=== PATIENT | female | born 1965 | race Two or more races ===

== ENCOUNTER 2017-08-12 08:09 | Emergency (ER) | payer SELFPAY ==
[~2017-08-12] VITALS: Ht 167.6 cm; Wt 83.9 kg
--- NOTE | 2017-08-12 08:33 | Emergency Room Report ---
History of Present Illness General Chief Complaint: Laceration Source: Patient Present Illness HPI 52-year-old female no significant past medical history p/w laceration upper right eyelid. sustained when she was stretching this morning and then tripped and fell onto her right side. Also sustained a superficial abrasion to her right knee. Patient has been able to ambulate without any issue. no other complaints. Tdap is up-to-date Allergies: Coded Allergies: No Known Allergies (Unverified , 08/12/17) Patient History Past Medical History: see triage record Past Surgical History: none Pertinent Family History: none Reviewed Nursing Documentation: PMH: Agreed, PSxH: Agreed Nursing Documentation-PMH Past Medical History: No Stated History Review of Systems All Other Systems: negative except mentioned in HPI Physical Exam Vital Signs Date Time Temp Pulse Resp B/P (MAP) Pulse Ox O2 Delivery O2 Flow Rate FiO2 08/12/17 08:12 97.2 80 14 119/70 100 Room Air Sp02 EP Interpretation: reviewed, normal General Appearance: normal inspection, well appearing, no apparent distress, alert, GCS 15, non-toxic Head: normocephalic Eyes: bilateral eye normal inspection, bilateral eye PERRL, bilateral eye EOMI , bilateral eye other - R eyelid (right under eyebrow) with superficial laceration ~2cm minimal bleeding ENT: normal ENT inspection, normal pharynx, normal voice, moist mucus membranes Neck: normal inspection, full range of motion, supple Respiratory: normal inspection, lungs clear, normal breath sounds, no respiratory distress, no retraction, no wheezing, speaking full sentences, chest symmetrical Cardiovascular #1: normal inspection, regular rate, rhythm, no edema, normal capillary refill Cardiovascular #2: 2+ radial (R), 2+ radial (L) Gastrointestinal: normal inspection, non tender, soft, non-distended, no guarding Musculoskeletal: back normal, normal range of motion, other - superficial abrasion R knee Neurologic: normal inspection, alert, oriented x3, responsive, membership sales advisor III-XII nml as tested, motor strength/tone normal, sensory intact, normal gait, speech normal Psychiatric: normal inspection, judgement/insight normal, memory normal Skin: normal color, no rash, warm/dry, well hydrated, normal turgor Procedures Laceration/Wound Repair Laceration/Wound Repair : Consent: Verbal Wound Location: face, other - R eyelid Wound Length (cm): 2 Wound Explored: clean Irrigated w/ Saline (ccs): 300 Betadine Prep?: Yes Anesthesia: 1% Lidocaine Volume Anesthetic (ccs): 2 Wound Repaired With: sutures Suture Size/Type: 6:0, nylon Number of Sutures: 5 Layer Closure?: Yes Sterile Dressing Applied?: Yes Splint Applied?: No Sling Applied?: No Patient Tolerated: Well Complications: None Medical Decision Making Diagnostic Impression: Primary Impression: Right eyelid laceration Additional Impression: Abrasion of right knee ER Course 52-year-old female with right eyelid laceration Right knee abrasion Differential diagnosis Laceration and abrasion No acute neurological symptoms, no findings on physical exam, not consistent with intracranial bleed ER course: Laceration repaired, bacitracin sterile dressing applied. Tetanus is up-to-date Disposition: Patient will be discharged home. Strict return precautions discussed with patient such as fever, chills, increasing bleeding to site, purulent drainage, rapid swelling or redness to area. Patient verbalizes understanding. Patient sis informed of inevitable scar that will result from laceration despite repair. Pt instructed to avoid sun exposure to decrease the appearance of scar. Patient instructed to return to ED or their primary care doctor in 5 days for removal of sutures. Patient agrees with plan. Please note that this Emergency Department Report was dictated using [employer] techn[employer] technology software, occasionally this can lead to erroneous entry secondary to interpretation by the dictation equipment Last Vital Signs Date Time Temp Pulse Resp B/P (MAP) Pulse Ox O2 Delivery O2 Flow Rate FiO2 08/12/17 08:12 97.2 80 14 119/70 100 Room Air Disposition: HOME, SELF-CARE Condition: Improved Patient Instructions: Facial Laceration Additional Instructions: Please follow up with your primary care doctor or emergency room in 5 days for suture removal Please come back to the emergency room if you are having severe/worsening pain, spread of rash, purulent drainage. Paulina Wu M.D. Aug 12, 2017 08:33
[2017-08-12] MEDS ORDERED: Bacitracin Oint UD TOPIC ONE (09:00)
[2017-08-12 09:12] VITALS: BP 123/75
== END 2017-08-12 09:12 | disposition home or self-care (01) ==
LOC: EMR 08:45
DX: S01.111A Laceration without foreign body of right eyelid and periocular area, initial encounter (principal); S80.211A Abrasion, right knee, initial encounter; W01.0XXA Fall on same level from slipping, tripping and stumbling without subsequent striking against object, initial encounter; Y93.9 Activity, unspecified; Y92.9 Unspecified place or not applicable
CPT/HCPCS: 99283

== ENCOUNTER 2017-08-17 15:49 | Emergency (ER) | payer SELFPAY ==
[~2017-08-17] VITALS: Ht 167.6 cm; Wt 83.9 kg
[2017-08-17 16:10] VITALS: BP 114/79
--- NOTE | 2017-08-17 16:17 | Emergency Room Report ---
History of Present Illness General Chief Complaint: Wound Recheck/Suture Removal Source: Patient Present Illness HPI Patient is a 52-year-old female who presents today for suture removal. Today she sustained a laceration to her right eyebrow 5 days ago. She states her tetanus was up-to-date and she denies pain at this time. Denies headache, dizziness or associated symptoms. Allergies: Coded Allergies: No Known Allergies (Unverified , 08/12/17) Patient History Last Menstrual Period: na Now: No Reviewed Nursing Documentation: PMH: Agreed, PSxH: Agreed Nursing Documentation-PMH Past Medical History: No Stated History Review of Systems Skin: Reports: other - suture removal Physical Exam Vital Signs Date Time Temp Pulse Resp B/P (MAP) Pulse Ox O2 Delivery O2 Flow Rate FiO2 08/17/17 15:52 97.9 71 18 114/79 98 Room Air Sp02 EP Interpretation: reviewed, normal General Appearance: no apparent distress, alert, GCS 15, non-toxic Head: normocephalic, atraumatic Eyes: bilateral eye normal inspection, bilateral eye PERRL ENT: hearing grossly normal, normal pharynx, no angioedema, normal voice Neck: full range of motion, supple/symm/no masses Respiratory: chest non-tender, lungs clear, normal breath sounds, speaking full sentences Cardiovascular #1: regular rate, rhythm, no edema Cardiovascular #2: 2+ carotid (R), 2+ carotid (L), 2+ radial (R), 2+ radial (L) , 2+ dorsalis pedis (R), 2+ dorsalis pedis (L) Gastrointestinal: normal bowel sounds, non tender, soft, non-distended, no guarding, no rebound Rectal: deferred Genitourinary: normal inspection, no CVA tenderness Musculoskeletal: back normal, gait/station normal, normal range of motion, non- tender, calf tenderness Neurologic: alert, oriented x3, responsive, motor strength/tone normal, sensory intact, speech normal Psychiatric: judgement/insight normal, memory normal, mood/affect normal, no suicidal/homicidal ideation Reflexes: 3+ bicep (R), 3+ bicep (L), 3+ tricep (R), 3+ tricep (L), 3+ knee (R) , 3+ knee (L) Skin: normal color, no rash, warm/dry, well hydrated, other - 2cm laceration to right eyebrow with several sutures in place. No surrounding erythema, no evidence of infection Lymphatic: no adenopathy Medical Decision Making PA Attestation supervising physician Dr. Shook Diagnostic Impression: Primary Impression: Laceration of eyebrow Additional Impression: Encounter for removal of sutures ER Course Procedure note: Removed to several sutures with forceps and scissors. Patient tolerated procedure well. Explained ways to reduce the appearance of scarring. Instructed to follow up with PCP for re-evaluation. Pt understands and is agreeable with plan. Last Vital Signs Date Time Temp Pulse Resp B/P (MAP) Pulse Ox O2 Delivery O2 Flow Rate FiO2 08/17/17 15:52 97.9 71 18 114/79 98 Room Air Status: improved Disposition: HOME, SELF-CARE Condition: Stable Patient Instructions: Wound Check Jagruti Tucker Aug 17, 2017 16:17
[2017-08-17 16:23] VITALS: BP 114/79
== END 2017-08-17 16:45 | disposition home or self-care (01) ==
LOC: EMR 16:40
DX: S01.111D Laceration without foreign body of right eyelid and periocular area, subsequent encounter (principal); X58.XXXD Exposure to other specified factors, subsequent encounter; Z48.02 Encounter for removal of sutures
CPT/HCPCS: 99281